=== PATIENT | female | born 1950 | race Caucasian/White ===

== ENCOUNTER 2018-04-25 11:06 | Inpatient (IN) | payer OTHER ==
--- NOTE | 2018-04-25 11:20 | EDPHY ---
H & P Stated Complaint: Recent dx stomach ca;can't swallow~1wk;wants adm&hospice Time Seen by Provider: 04/25/18 11:20 - Personal History Current Tetanus Diphtheria and Acellular Pertussis (TDAP): Yes - Medical/Surgical History Other PMH: chronic pain - Social History Smoking Status: Former smoker Constitutional: Initial Vital Signs Temperature (C) 37 C 04/25/18 11:10 Heart Rate 100 04/25/18 11:10 Respiratory Rate 18 04/25/18 11:10 Blood Pressure 145/98 H 04/25/18 11:10 O2 Sat (%) 97 04/25/18 11:10 O2 Delivery Mode Room Air Allergies/Adverse Reactions: ciprofloxacin [From Cipro] Allergy (Mild, Verified 04/25/18 11:16) GI upset metronidazole [From Flagyl] Allergy (Mild, Verified 04/25/18 11:16) GI upset Metronidazole HCl [From Flagyl] Allergy (Mild, Verified 04/25/18 11:16) GI upset Home Medications: Medication Instructions Recorded fentaNYL [Duragesic] 1 each TD 04/25/18 Medical Decision Making ED Course/Re-evaluation: CHIEF COMPLAINT: Progressive esophageal cancer, wants hospice HISTORY OF PRESENT ILLNESS: The patient is a 67 y/o female with rapidly progressing obstructive esophageal cancer diagnosed 4 days ago who is requesting comfort measures and help entering hospice as she is unable to eat or drink. She developed symptoms in December and has been on treatment for GERD since then. Symptoms worsened and last week she was scoped by JALEN Richardson, who was unable to pass the scope due to a nearly completely obstructing esophageal mass. She describes near constant burning pain, nausea, and a "heavy weight" in her chest. She is unable to lie down due to pain and even trying to swallow a drop of water causes dry heaving and severe pain. She is requesting pain management and help planning hospice care. She is scheduled to see an oncologist next week, but is in intolerable pain currently. A Fentanyl patch offered minimal relief. REVIEW OF SYSTEMS: A comprehensive 10 system review of systems is otherwise negative aside from elements mentioned in the history of present illness and medical decision making. PHYSICAL EXAM: HR, BP, O2 Sat, RR. Temp noted General Appearance: Alert, well hydrated, appropriate, and non-toxic appearing. Thin. Head: Atraumatic without scalp tenderness or obvious injury Eyes: Pupils equal, round, reactive to light and accommodation, EOMI, no trauma , no injection. Ears: Clear bilaterally, no perforation, normal landmarks Nose: Atraumatic, no rhinorrhea, clear. Throat: There is no erythema or exudates, no lesions, normal tonsils, mucus membranes moist. Neck: Supple, nontender, no lymphadenopathy. Respiratory: No retractions, no distress, no wheezes, and no accessory muscle use. Lungs are clear to auscultation bilaterally. Cardiovascular: Regular rate and rhythm, no murmurs, rubs, or gallops. Good capillary refill all extremities. Gastrointestinal: Abdomen is soft, nontender, non-distended, no masses, no rebound, no guarding, no peritoneal signs. Musculoskeletal: Normal active ROM of all extremities, atraumatic. Neurological: Alert, appropriate, and interactive. The patient has non-focal cranial nerves, motor, sensory, and cerebellar exam. Skin: No rashes, good turgor, no nodules on palpation. Past medical history: Esophageal cancer, scoliosis Past surgical history: noncontributory Family history: Noncontributory Social history: Son at bedside, lives in [place], [facility]. GI: Dr. Fay DIFFERENTIAL DIAGNOSIS: The differential diagnosis for the patient's symptoms included but was not limited to progressive esophageal cancer, obstructing mass , dysphagia, odynophagia. MEDICAL DECISION MAKING: This is a 67 y/o female who presents with a recently-diagnosed and rapidly growing esophageal mass that has now caused inability to swallow and severe pain. She is seeking comfort care and hospice. Plan for IV, labs, symptom management, case management involvement, oncology and GI consults, and admission. 1mg IV Dilaudid, 30mg IV Toradol, 4mg IV Zofran, 40mg IV Protonix, 1L IV NS ordered. Spoke with hospitalist service. Dr. Weeks accepts admission. 1155: Consulted with Dr. Fay, GI. He will consult as needed, though reports if patient opts for PEG tube it will need to be surgical or IR. 1222: Consulted with Dr. Pak, oncology. They will consult and would like a chest and abdomen/pelvis CT. - Data Points Laboratory Results: Laboratory Results 04/25/18 11:55 04/25/18 04/25/18 04/25/18 11:55 11:55 11:55 WBC 6.17 10^3/uL 10^3/uL (3.80-9.50) RBC 4.73 10^6/uL 10^6/uL (4.18-5.33) Hgb 15.5 g/dL g/dL (12.6-16.3) Hct 43.9 % % (38.0-47.0) MCV 92.8 fL fL (81.5-99.8) MCH 32.8 pg pg (27.9-34.1) MCHC 35.3 g/dL g/dL (32.4-36.7) RDW 13.2 % % (11.5-15.2) Plt Count 443 10^3/uL H 10^3/uL (150-400) MPV 9.7 fL fL (8.7-11.7) Neut % (Auto) 73.0 % % (39.3-74.2) Lymph % (Auto) 16.7 % % (15.0-45.0) Sequoyah % (Auto) 8.1 % % (4.5-13.0) Eos % (Auto) 1.8 % % (0.6-7.6) Baso % (Auto) 0.2 % L % (0.3-1.7) Nucleat RBC Rel Count 0.0 % % (0.0-0.2) Absolute Neuts (auto) 4.51 10^3/uL 10^3/uL (1.70-6.50) Absolute Lymphs (auto) 1.03 10^3/uL 10^3/uL (1.00-3.00) Absolute Monos (auto) 0.50 10^3/uL 10^3/uL (0.30-0.80) Absolute Eos (auto) 0.11 10^3/uL 10^3/uL (0.03-0.40) Absolute Basos (auto) 0.01 10^3/uL L 10^3/uL (0.02-0.10) Absolute Nucleated RBC 0.00 10^3/uL 10^3/uL (0-0.01) Immature Gran % 0.2 % % (0.0-1.1) Immature Gran # 0.01 10^3/uL 10^3/uL (0.00-0.10) PT 13.5 SEC SEC (12.0-15.0) INR 1.01 (0.83-1.16) APTT Pending Sodium Pending Potassium Pending Chloride Pending Carbon Dioxide Pending Anion Gap Pending BUN Pending Creatinine Pending Estimated GFR Pending Glucose Pending Calcium Pending Total Bilirubin Pending Conjugated Bilirubin Pending Unconjugated Bilirubin Pending AST Pending ALT Pending Alkaline Phosphatase Pending Total Protein Pending Albumin Pending Lipase Pending Medications Given: Discontinued Medications Hydromorphone HCl (Dilaudid) 1 mg IVP EDNOW ONE Stop: 04/25/18 11:47 Last Admin: 04/25/18 12:06 Dose: 1 mg Sodium Chloride (Ns) 1,000 mls @ 0 mls/hr IV EDNOW ONE; Wide Open PRN Reason: Protocol Stop: 04/25/18 11:47 Last Admin: 04/25/18 12:01 Dose: 1,000 mls Ketorolac Tromethamine (Toradol) 30 mg IVP EDNOW ONE Stop: 04/25/18 11:47 Last Admin: 04/25/18 12:05 Dose: 30 mg Ondansetron HCl (Zofran) 4 mg IVP EDNOW ONE Stop: 04/25/18 11:47 Last Admin: 04/25/18 12:02 Dose: 4 mg Departure - Departure Disposition: [facility] Inpatient Acute Clinical Impression: Esophageal mass, Intractable pain Dysphagia Qualifiers: Dysphagia type: unspecified Qualified Code(s): R13.10 - Dysphagia, unspecified Condition: Serious Report Scribed for: Donaldo Garcia Report Scribed by: Liz Morales Date of Report: 04/25/18 Time of Report: 11:44
[2018-04-25] MEDS ORDERED: NS 1,000 ML IV ONE (11:46)
[2018-04-25] MEDS ORDERED: HYDROmorphONE/DILAUDID 2 MG/ML INJ IVP ONE (11:46)
[2018-04-25] MEDS ORDERED: ONDANSETRON 4 MG/2 ML VIAL IVP ONE (11:46)
[2018-04-25] MEDS ORDERED: KETOROLAC 30 MG/1 ML SDV IVP ONE (11:46)
[2018-04-25 12:06] LABS: PLATELET COUNT 443 10^3/uL (150-400)
[2018-04-25 12:16] LABS: INR 1.01 (0.83-1.16); PROTIME(PATIENT) 13.5 SEC (12.0-15.0)
[2018-04-25] MEDS ORDERED: ZOLPIDEM TARTRATE 5 MG TAB PO PRN (12:46)
[2018-04-25] MEDS ORDERED: ACETAMINOPHEN 325 MG TAB PO PRN (12:46)
--- NOTE | 2018-04-25 12:50 | ASMTLACE ---
ROSIE Acuity / Level of Answers: Yes Care: Did the patient have an inpatient admission? Comorbidities - select Answers: Any tumor (including all that apply lymphoma or leukemia) Opioid dependence / Chronic pain Palliative care / End of life trajectory # of Emergency department Answers: 1-2 visits in the last 6 months Score: 12 Date Signed: 04/25/2018 12:49 PM Electronically Signed By:Gracie Stuart RN
[2018-04-25] MEDS ORDERED: LIDOCAINE 2% VISCOUS 15 ML UDCUP PO PRN (13:53)
--- NOTE | 2018-04-25 13:53 | PDGENHP ---
History and Physical History and Physical: CC: Nausea vomiting chest and abdominal pain with recent tumor diagnosed HISTORY: This patient who is generally healthy has been fighting trouble with substernal and epigastric burning pain nausea and inability to eat and drink for several months which has been getting much worse to the point where she can barely get a few drops of water at a time in now and she has become dehydrated. She was seen in endoscopy clinic 5 days ago with upper GI which showed a very large esophagogastric mass. Biopsies have shown a poorly differentiated adenocarcinoma. Dr. Fay was unable to advance the endoscope beyond the tumor and so there is very incomplete examination in terms of anatomy. The patient has been using proton pump inhibitors but finding them very unhelpful. She does find some licorice and slippery elm syrup somewhat helpful in reducing the burning discomfort to a degree. Antacids increase the burning sensation. The patient also has been having quite a bit of increase in a burning type pain in her back, particularly along the spine and ribs. 3 days ago she started using fentanyl patch at 12.5 mcg, and last night it was increased to 25 mcg. This is giving her some good improvement in pain so far without sedation or nausea. She did have a bowel movement this morning despite her having very minimal oral intake lately. She denies headaches, neurologic or visual symptoms, cough or shortness of breath, bleeding, bladder or urinary difficulties, arthropathy, skin lesions or rashes. She has lost a very large amount of weight but has not weighed herself. She is getting very weak. She has cut back on activities significantly. ROS: A comprehensive 10 system review revealed no other significant findings PAST MEDICAL HISTORY: Chronic back pain with scoliosis Irritable bowel syndrome DCIS FAMILY MEDICAL HISTORY: Esophageal cancer in an aunt Breast cancer in 1 family member and DCIS and another Father was a smoker and of myocardial infarction Other cancer? SOCIAL HISTORY: Works at [employer] Former smoker, never drank alcohol no hx of chemical exposures MEDICATIONS: The patients list has been reconciled by our clinical pharmacist in the EMR. I have reviewed the list and ordered appropriate medicines. PHYSICAL EXAMINATION: Vital Signs: No fever, some mild hypertension otherwise stable Ivory Polisher: Examination: General: alert, oriented, good mentation, looks mildly uncomfortable at this time but overall relaxed; obvious cachexia was minimal subcutaneous fat and very poor lean muscle mass Skin: warm, dry, good color, no rash HEENT: normal Neck: no mass or jvd Resps: relaxed Lungs: clear breath sounds Heart: regular, no murmur Abdomen: soft, nondistended, some diffuse tenderness in the epigastrium, +BS, no mass Upper Extremities: normal Lower Extremities: no edema, warm No Bleeding or bruising Neurologic: normal speech/language, 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, no focal weakness IV site: looks normal LABORATORY DATA: Platelets a bit high but CBC otherwise normal Potassium low at 3.0, CO2 up at 32 with anion gap of 15, BUN up at 28 with normal creatinine Normal liver enzymes and bilirubin normal albumin 4.4 calcium 9.7 (I suspect a lot of these numbers like her albumin and calcium will change somewhat with hydration) RADIOLOGY STUDIES: None so far ASSESSMENT: * new diagnosis of esophageal/gastric carcinoma * pain of malignancy, severe and currently uncontrolled * dehydration * severe protein calorie malnutrition * hypokalemia PLANS: * Inpatient admission * IV fluid hydration and potassium replacement * Pain management; at this time as she is tolerating 25 mcg fentanyl patch will continue that and will work with some short-acting rescue narcotic medicine. I believe that she may also benefit from some lidocaine solution orally, and given her description of the sensation of pain in her back she may well benefit from medicine for neuropathic pain but will review her CT scans * Percutaneous feeding tube placement, will review with Interventional Radiology * I have discussed possible chemotherapy options and further therapy options with Dr. Pak, further tumors studies will be required before definitive treatment but she may benefit from some initial therapy now in the way of tumor reduction and pain management * Public Information Director consultation, will begin enteral feeds as soon as we are able I have reviewed the patient's case in detail with Dr. Donaldo Garcia and Jacky Pak I have reviewed the patient's past medical records as part of this assessment, including previous ER records here
--- NOTE | 2018-04-25 13:57 | PDCONSULT ---
Comfort Station Attendant Note: Hematology/oncology consultation note Reason for consultation: Newly diagnosed esophageal cancer History of present illness: This is a very pleasant 67-year-old female who was admitted with a new diagnosis of esophageal cancer. She states that in December of 2017 she noted symptoms of dysphagia with solid foods. She states that she would feel food gets"stuck"in the lower portion of her abdomen. She thought some of this could be related to gastroesophageal reflux disease. She took Prilosec and had slight improvement in her symptoms. The symptoms unfortunately return. She saw a functional Integrative Medicine practitioner and was given licorice root which did help her symptoms. Eventually later in the summer her symptoms slowly worsened. She had significant abdominal pain alongside 20 lb weight loss. She eventually underwent endoscopy for on 04/21/2018 which demonstrated obstructive mass in the esophagus with the scope unable to be passed. Biopsy of the junctional mucosa demonstrated poorly differentiated adenocarcinoma. She was to see us in clinic in the coming weeks but unfortunately had worsening of her abdominal pain and GI symptoms. She is currently taking fentanyl patch at 12.5 mc but continued to have breakthrough pain. Past medical history: Atypical ductal hyperplasia of the left breast Chronic cervical and lower back pain Restless leg syndrome IBS Past surgical history: Left lumpectomy Hysterectomy in her 40s Bilateral cataract surgery in her 50s Bunionectomy Hammertoe repair in her 40s. Femoral hernia repair few years ago Family history: Mother age 96 history hypertension. Father age 69 myocardial infarction. Maternal aunt with esophageal cancer. Maternal grandfather with lung cancer. Paternal grandmother with lung or breast cancer. Social history: She is a former smoker quit 30 years ago smoked 1 pack per day. She has no significant alcohol intake. She currently works full-time at [employer] with [employer]. Allergies: Noted in the EMR. Medications: Noted in the EMR. Physical examination Temp Pulse Resp BP Pulse Ox 36.6 C 78 18 142/86 H 99 04/25/18 13:44 04/25/18 13:44 04/25/18 13:44 04/25/18 13:44 04/25/18 13:44 O2 (L/minute) 2 General: Thin female, conversant HEENT: Sunken eyes, extraocular movements are intact pupils equal round reactive to light, oropharynx is clear, dry mucous membranes Cardiovascular: Regular rate and rhythm no murmurs gallops rubs Pulmonary: Clear to auscultation bilaterally Abdomen: Thin, no rebound, pain in the epigastrium, bowel sounds are present Extremities: No cyanosis clubbing or edema. Psych: Appropriate affect Neuro: Moving all extremities alert oriented x4 Skin: No skin lesions Lymph: No appreciable lymphadenopathy 04/21/2018 endoscopy with biopsy demonstrating poorly differentiated adenocarcinoma. Assessment and plan: This is a very pleasant 67-year-old female who is otherwise previously healthy with a new diagnosis of esophageal adenocarcinoma. 1. Esophageal adenocarcinoma: I have recommended obtaining baseline staging with a CT of the chest abdomen and pelvis. We discussed that treatment would ultimately be dependent on finalized staging. If she has unresectable disease, I would recommend palliative chemotherapy. I will request her pathology be sent for her 2 testing alongside MSI evaluation. She has amendable for treatment and is willing to undergo [id number] placement. 2. Cancer-related pain: Agree with increasing fentanyl patch 25 mcg with IV to be given for breakthrough. 3. Weight loss: This is secondary to 1. We discussed the given her level of obstruction she unlikely we will be able to tolerate p.o. unless if she has tumor cytoreduction. She is amendable to receive a percutaneous feeding tube. Will review the CT imaging to see if that can be done with Interventional Radiology versus surgically. All questions were answered. She voiced understanding the plan.
[2018-04-25] MEDS: PANTOPRAZOLE SODIUM 40 MG VIAL IVP SCH (14:27)
[2018-04-25] MEDS: fentaNYL 25 MCG PATCH TD SCH (14:28)
--- NOTE | 2018-04-25 14:35 | GCON ---
GI INPATIENT CONSULTATION DATE OF CONSULTATION: 04/25/2018 I was kindly requested to see the patient by Dr. Donaldo Garcia in consultation for a chief complaint of pain and feeding difficulties. She is an unfortunate 67-year-old white female who I recently performed an outpatient upper endoscopy on for gastric outlet obstructive symptoms, epigastric and substernal abdominal pain, and significant weight loss. A very large gastric cancer was found, occupying the upper half of her stomach. There was some extension into the GE junction. Much of the cancer was villous in nature, but there were also infiltrative areas suggestive of linitis plastica. We were unable to get the endoscope past the body of the stomach due to circumferential obstruction. Biopsies returned with adenocarcinoma. She has had continued pain from her cancer and presented to the emergency department. She is also having difficulty with oral intake. She feels dehydrated. She has had continued weight loss. The patient is aware of her diagnosis. I have discussed her case with her PCP, Dr. Rosalba Boone. The next step was a staging CT scan and referral to an oncologist, but with the worry that this was presenting late and noncurable. PAST MEDICAL HISTORY: 1. As above. 2. Partial hysterectomy. 3. Cataract surgery. 4. Otherwise, noncontributory. MEDICATIONS: Inpatient medications include pantoprazole 40 mg IV piggyback q.6. SOCIAL HISTORY: She is . She has a son who lives in the area. Her daughter, Mignon, lives in [place]. The patient's cell phone number is . FAMILY HISTORY: Negative for similar malignancy. REVIEW OF SYSTEMS: Positive pertinent review of systems as per my HPI. Otherwise, complete review of systems is negative. PHYSICAL EXAM: CONSTITUTIONAL: Chronically ill-appearing woman, in pain. SKIN : Warm, dry. EARS, NOSE, MOUTH, AND THROAT: Oropharynx without masses, moist mucosa. CARDIOVASCULAR: Normal S2, normal PMI. RESPIRATORY: Lungs clear to auscultation and percussion anteriorly. GASTROINTESTINAL: Abdomen with some mild epigastric tenderness. Soft. NEUROLOGIC: Grossly nonfocal, cranial nerves grossly intact. PSYCHIATRIC: Orientation, insight appropriate. MUSCULOSKELETAL: Strength grossly normal throughout, normal station. LABORATORIES: Include hypokalemia. ASSESSMENT: 1. Obstructing gastric cancer, with extension into the gastroesophageal junction (causing some esophageal obstruction as well). Biopsies returned as an adenocarcinoma. Much of the gastric cancer has an appearance of linitis plastica. Overall, with the above tumor burden, and my suspicion that she is presenting late in her course with her significant weight loss, suspect nonresectable for cure. 2. Feeding difficulties. Her gastric cancer is nearly obstructive in the midbody of the stomach, as well as some infiltration into the gastroesophageal junction. Unable to get the endoscope past the gastric body. Therefore, she is not a candidate for endoscopic placement of a gastrostomy tube. If not a surgical candidate, as I suspect, but she wishes to receive nourishment, fluids , etc., she would require a jejunostomy tube. This would need to be placed either surgically, or (if possible) via Interventional Radiology. PLAN: 1. She is being admitted for pain control, IV fluids, and possible help with becoming hospice and comfort care. 2. While an inpatient, to be more definitive that this is indeed nonresectable for cure, would recommend a chest and abdominal CT scan for staging. 3. While an inpatient, would also recommend oncology consultation. If she indeed becomes hospice and comfort care, they can help with pain medicine control, etc. 4. Will change her Protonix to just daily, while here in the hospital. This is not an acid peptic condition, so do not suspect PPIs are necessary or will help decrease her pain. 5. Management of her feeding difficulty, as above. Further management as per the hospitalist service, oncologist. We will follow informally only. Please call if we can be of further help in the future. Copy requested to: Dr. Rosalba Boone /[id number]/MODL MTDD
--- NOTE | 2018-04-25 14:51 | ASMTCMCOM ---
CM Note CM Note Notes: 04/25/2018 Case Management Note Reviewed chart. Pt admitted for pain control and staging of newly diagnosed gastric cancer. Pt may require surgery for jejunostomy tube per Dr. Fay note today. Awaiting OT and SLT evals. Case Management d/c poc: to be determined Case Management to follow. Date Signed: 04/25/2018 02:50 PM Electronically Signed By:Sridevi Gamboa RN
--- NOTE | 2018-04-25 15:05 | PDMN ---
Medical Necessity Medical necessity: [facility] : Oncology new Dg esophageal / gastric Ca,- pain, dehydration, severe protein calorie malnutrition, hypokalemia, - anticipate > 2 MN ongoing med nec. for further eval, monitoring and tx. -consults pend
[2018-04-25] MEDS ORDERED: IOPAMIDOL (ISOVUE-300) 100 ML BTL ONE (16:35)
[2018-04-25] MEDS ORDERED: PANTOPRAZOLE SODIUM 40 MG VIAL IVP SCH (17:47)
[2018-04-25] MEDS: NS W/ 20 KCl/L 1,000 ML IV SCH ×2 (19:36→21:18)
[2018-04-25] MEDS: ONDANSETRON 4 MG/2 ML VIAL IVP PRN (19:43)
[2018-04-25] MEDS: PROMETHAZINE HCL 25 MG/ML INJ IVP PRN (21:17)
[2018-04-25] MEDS: MELATONIN 3 MG TAB PO SCH (21:20)
[2018-04-25] MEDS: morphINE 10 MG/0.5 ML UDSYR PO PRN (21:20)
[2018-04-26] MEDS: NS W/ 20 KCl/L 1,000 ML IV SCH ×3 (04:16→17:51)
[2018-04-26] MEDS: PROMETHAZINE HCL 25 MG/ML INJ IVP PRN ×2 (04:22→18:33)
[2018-04-26] MEDS: morphINE 10 MG/0.5 ML UDSYR PO PRN ×4 (04:22→21:26)
[2018-04-26 05:11] LABS: PLATELET COUNT 327 10^3/uL (150-400)
[2018-04-26] MEDS ORDERED: D50W 25 GM/50 ML VIAL IVP PRN (05:48)
[2018-04-26] MEDS: ONDANSETRON 4 MG/2 ML VIAL IVP PRN ×3 (08:03→17:51)
[2018-04-26] MEDS: PANTOPRAZOLE SODIUM 40 MG VIAL IVP SCH (08:03)
--- NOTE | 2018-04-26 14:04 | ASMTCMCOM ---
CM Note CM Note Notes: Patient plan of care reviewed in rounds. 67 year old female with relatively newly diagnosed esophageal cancer here with pain and dysphagia. She reports her symptoms are much improved. Cancer is still in process of staging. Her son is in her room. Plan of care still being determined at this time. CM to follow for needs. Plan: TBD Date Signed: 04/26/2018 02:04 PM Electronically Signed By:Ketty Irizarry RN
--- NOTE | 2018-04-26 17:01 | SOAPPROG ---
SKIP Progress Note Assessment/Plan: Assessment: This is a very pleasant 69-year-old female with a newly diagnosed esophageal cancer who was admitted for failure to thrive in pain control. 1. Gastroesophageal cancer: I have reviewed her CT imaging that demonstrates thickening in the distal esophagus extending down to the stomach. This was previously biopsy that demonstrated adenocarcinoma. I reviewed her CT scans demonstrate no evidence of distant metastasis. I have recommended that she obtain a PET/CT as an outpatient. She needs to have access for nutrition and of consult General surgery for evaluation of a G-J Tube. Given the lack of distant metastasis I have also discussed with Dr. Ibarra about a peritoneal wash and diagnostic laparoscopy while placement of G-J. 2. Weight loss: This is secondary to 1. We are addressing the issue by placing a G-J tube. 3. Cancer related pain: She is on fentanyl patch alongside short-acting opiates. Her pain is currently under good control. 04/26/18 16:58 Subjective: She reports feeling well today. Her pain is under control. She is still in a able to eat given her underlying obstruction. She is ambulating without any assistance. No other issues overnight. Objective: Vital Signs Temp Pulse Resp BP Pulse Ox 36.7 C 73 16 137/87 H 99 04/26/18 16:19 04/26/18 16:19 04/26/18 16:19 04/26/18 16:19 04/26/18 16:19 Laboratory Results 04/26/18 04:12 04/26/18 04:12 04/25/18 04/26/18 04/27/18 05:59 05:59 05:59 Intake Total 3145 Output Total 300 Balance 2845 PT 13.5 SEC (12.0-15.0) 04/25/18 11:55 INR 1.01 (0.83-1.16) 04/25/18 11:55 General: Pleasant conversant in no acute distress HEENT: Oropharynx is clear extraocular movements are intact Cardiovascular: Regular rate and rhythm Pulmonary: Clear to auscultation bilaterally Abdomen: Thin slight tenderness in the epigastrium soft nontender otherwise bowel sounds are present no rebound Extremities: No cyanosis clubbing or edema Neuro: Moving all extremities Skin: No skin lesions ICD10 Worksheet Patient Problems: Problems Problem Status Onset Dysphagia Acute Esophageal mass Acute Intractable pain Acute
--- NOTE | 2018-04-26 19:13 | HOSPPROG ---
Hospitalist Progress Note Assessment/Plan: DIAGNOSES: * new diagnosis of esophageal/gastric carcinoma * pain of malignancy, severe and currently uncontrolled * Improved with changes in her pain management so far including increase the fentanyl patch * dehydration due to inability to take in fluids from tumor * Approaching usually me a at this time but still with poor intake * severe protein calorie malnutrition due to inability to eat from tumor * Still not able to take in food well * hypokalemia Seen by me today on hospitals rounds and multidisciplinary rounds Reviewed by me today with Dr. Jacky Pak PLANS: * Continue current pain management, titrate based on her progress over the next couple of days here * Continue IV hydration for now * Plan is to place a percutaneous feeding tube surgically tomorrow with Dr. 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 There is no evidence of metastatic disease although there are some limits given her severe scoliosis another features. She does have fairly severe thoracic scoliosis and degenerative spine disease. Objective: Vital Signs Temp Pulse Resp BP Pulse Ox 36.7 C 73 16 137/87 H 99 04/26/18 16:19 04/26/18 16:19 04/26/18 16:19 04/26/18 16:19 04/26/18 16:19 Laboratory Results 04/26/18 04:12 04/26/18 04:12 04/25/18 04/26/18 04/27/18 06:59 06:59 06:59 Intake Total 3145 0 Output Total 300 600 Balance 2845 -600 PT 13.5 SEC (12.0-15.0) 04/25/18 11:55 INR 1.01 (0.83-1.16) 04/25/18 11:55 - Time Spent With Patient Time Spent with Patient: greater than 35 minutes Time Spent with Patient: Greater than 35 minutes spent on this patients care, greater than 50% of time spent counseling, educating, and coordinating care regarding the above mentioned plan. ICD10 Worksheet Patient Problems: Problems Problem Status Onset Dysphagia Acute Esophageal mass Acute Intractable pain Acute
[2018-04-26] MEDS: MELATONIN 3 MG TAB PO SCH (21:26)
--- NOTE | 2018-04-26 21:58 | GCON ---
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 HISTORY OF PRESENT ILLNESS: The patient is a 67-year-old female who has had 20 pound weight loss sin december, dysphagia to the point where she cannot even tolerate much water. She came to the hospital where a CT scan showed thickening of the GE junction and body of the stomach. An endoscopy has been done by Dr. Fay. Although I cannot read the body of his report, I understand it shows involvement o f the whole upper half of the stomach with potentially linitis plastica features. I have reviewed ab dominal and chest CTs again showing thickening of the upper stomach and the lack of metastatic diseas e or obvious mayte involvement. Pathology again apparently shows adenocarcinoma. The path report wa s verbal and there is no typed report yet in the chart. PHYSICAL EXAM: GENERAL: A 70 pound female, cachectic. LYMPHATIC: No supraclavicular nor axillary nodes. ABDOMEN: Soft, benign. There is a fullness in the upper abdomen which I suspect was a thick ened stomach wall given her slender body habitus. ASSESSMENT AND PLAN: I discussed the case with Dr. Pak who has requested for consideration of a staging laparoscopy and feeding tube placement. This can certainly be done in the next day or 2, and a jejunal tube can be placed. I do not think the patient is a good candidate for any type of gastro stomy given the thickened stomach wall. A chemotherapy port can be placed at the same time. /[id number]/MODL
[2018-04-27] MEDS: NS W/ 20 KCl/L 1,000 ML IV SCH ×2 (03:14→09:09)
[2018-04-27] MEDS: PROMETHAZINE HCL 25 MG/ML INJ IVP PRN ×3 (03:14→23:01)
[2018-04-27] MEDS: PANTOPRAZOLE SODIUM 40 MG VIAL IVP SCH (08:02)
[2018-04-27] MEDS: morphINE 10 MG/0.5 ML UDSYR PO PRN (09:08)
[2018-04-27] MEDS: HYDROmorphONE/DILAUDID 1 MG/ML INJ IVP PRN ×2 (11:13→23:01)
[2018-04-27] MEDS ORDERED: BUPIVACAINE 0.5% 30 ML SDV ONE (13:37)
[2018-04-27] MEDS ORDERED: POLYMYXIN B SULFATE 500,000 UNIT/10 ML SYR IRR ONE (13:38)
--- NOTE | 2018-04-27 14:14 | ASMTCMCOM ---
CM Note CM Note Notes: Patient plan of care reviewed in rounds. For J tube and port placement today. Will likely need HHC RN to assist patient. Unsure of what feedings may look like. Will place referrals in allscripts for HHC and home infusion services. Will apply to [facility] as well. CM to follow for needs. Plan: Home with HHC RN and infusion service. Date Signed: 04/27/2018 02:08 PM Electronically Signed By:Ketty Irizarry RN
[2018-04-27] MEDS ORDERED: PROTOCOL MAGNESIUM 1 DOSE IV PRN (14:43)
[2018-04-27] MEDS ORDERED: PROTOCOL POTASSIUM 1 DOSE MISC PRN (14:43)
--- NOTE | 2018-04-27 14:47 | HOSPPROG ---
Hospitalist Progress Note Assessment/Plan: DIAGNOSES: * new diagnosis of esophageal/gastric carcinoma * pain of malignancy * dehydration due to inability to take in fluids from tumor * severe protein calorie malnutrition due to inability to eat from tumor * Still not able to take in food well * hypokalemia * Nausea: schedule antiemetics Seen by me today on hospitals rounds and multidisciplinary rounds Reviewed by me today with Dr. Jacky Pak PLANS: * Staging Lap, Jejunal feeding tube placement, port placement today * Continue current pain management, titrate based on her progress over the next couple of days here * cont but decrease rate of IVF * replace K, check Mg. * tube feeds once able to start. Dietary is following * chemotherapy either during this hospital stay or shortly thereafter in clinic Subjective: awaiting surgery. Has nausea. no abd pain. IVF running Objective: Vital Signs Temp Pulse Resp BP Pulse Ox 36.8 C 76 14 124/79 H 96 04/27/18 14:34 04/27/18 14:34 04/27/18 14:34 04/27/18 14:34 04/27/18 14:34 Laboratory Results 04/26/18 04:12 04/26/18 04:12 04/26/18 04/27/18 04/28/18 05:59 05:59 05:59 Intake Total 3145 1257 Output Total 300 1150 500 Balance 2845 107 -500 PT 13.5 SEC (12.0-15.0) 04/25/18 11:55 INR 1.01 (0.83-1.16) 04/25/18 11:55 - Physical Exam Constitutional: chronically ill appearing Eyes: PERRL Ears, Nose, Mouth, Throat: moist mucous membranes, hearing normal Cardiovascular: regular rate and rhythym, No edema Respiratory: no respiratory distress, no rales or rhonchi, clear to auscultation Gastrointestinal: normoactive bowel sounds, soft, non-tender abdomen Skin: warm Musculoskeletal: generalized weakness Neurologic: AAOx3 Psychiatric: interacting appropriately, not anxious, not encephalopathic Lymph, Heme, Immunologic: No petechiae ICD10 Worksheet Patient Problems: Problems Problem Status Onset Dysphagia Acute Esophageal mass Acute Intractable pain Acute
[2018-04-27] MEDS ORDERED: LR 1,000 ML IV ONE (14:52)
--- NOTE | 2018-04-27 15:04 | SOAPPROG ---
SKIP Progress Note Assessment/Plan: Assessment: This is a very pleasant 69-year-old female with a newly diagnosed esophageal cancer who was admitted for failure to thrive in pain control. 1. Gastroesophageal cancer: I have reviewed her CT imaging that demonstrates thickening in the distal esophagus extending down to the stomach. This was previously biopsy that demonstrated adenocarcinoma. I reviewed her CT scans demonstrate no evidence of distant metastasis. I have recommended that she obtain a PET/CT as an outpatient. She is to undergo G-J Tube placement today for nutrition. I have also discussed peritoneal wash for evaluation of metastatic disease within the abdomen. We also discussed Lcxknj-L-Cxla placement and she finds is agreeable as she likely will need chemotherapy either in the metastatic setting or preoperatively. She voices understanding of this and is agreeable for Nccjko-U-Lwoz placement. 2. Weight loss: This is secondary to 1. She will follow up with nutrition following G-J tube place. 3. Cancer related pain: She is on fentanyl patch alongside short-acting opiates. Her pain is currently under good control. 04/27/18 15:03 Subjective: No acute events overnight. She is ready for surgery today. Objective: Vital Signs Temp Pulse Resp BP Pulse Ox 36.8 C 76 14 124/79 H 96 04/27/18 14:34 04/27/18 14:34 04/27/18 14:34 04/27/18 14:34 04/27/18 14:34 Laboratory Results 04/26/18 04:12 04/26/18 04:12 04/26/18 04/27/18 04/28/18 05:59 05:59 05:59 Intake Total 3145 1257 Output Total 300 1150 500 Balance 2845 107 -500 PT 13.5 SEC (12.0-15.0) 04/25/18 11:55 INR 1.01 (0.83-1.16) 04/25/18 11:55 General: Thin female appears in no acute distress HEENT: Extraocular movements are intact eye pupil equal and reactive Cardiovascular: Regular rhythm Pulmonary: Clear to auscultation bilaterally Abdomen: Mild tenderness in the epigastrium bowel sounds are present no rebound or guarding Extremities: No cyanosis clubbing or edema ICD10 Worksheet Patient Problems: Problems Problem Status Onset Dysphagia Acute Esophageal mass Acute Intractable pain Acute
[2018-04-27] MEDS ORDERED: MIDAZOLAM 2 MG/2 ML VIAL IVP ONE (15:36)
--- NOTE | 2018-04-27 15:39 | PDANEPAE ---
ANE History of Present Illness 67 year old with gastric ca ANE Past Medical History - Pulmonary History Hx Oxygen in Use at Home: No Hx Sleep Apnea: No Sleep Apnea Screening Result - Last Documented: Negative - Chronic Pain History Chronic Pain: Yes ANE Review of Systems Review of systems is: negative Review of Systems: ANE Patient History - Allergies Allergies/Adverse Reactions: ciprofloxacin [From Cipro] Allergy (Mild, Verified 04/25/18 11:16) GI upset metronidazole [From Flagyl] Allergy (Mild, Verified 04/25/18 11:16) GI upset Metronidazole HCl [From Flagyl] Allergy (Mild, Verified 04/25/18 11:16) GI upset - Home Medications Home medications: home medication list seen and reviewed Home Medications: Herbals/Supplements -Info Only 1 ea PO DAILY 04/25/18 [Last Taken Unknown] Ondansetron Odt [Zofran Odt 4 mg (*)] 4 mg PO Q8HRS PRN 04/25/18 [Last Taken Unknown] fentaNYL [Duragesic 12 MCG Patch (*)] 12 mcg TD Q72H 04/25/18 [Last Taken 21:00] traMADol [Ultram 50 mg (*)] 50 mg PO Q4HRS PRN 04/25/18 [Last Taken 04/22/18] - NPO status NPO Since - Liquids (Date): 04/27/18 NPO Since - Liquids (Time): 00:00 NPO Since - Solids (Date): 04/27/18 NPO Since - Solids (Time): 00:00 - Anes Hx Anes Hx: no prior problems - Smoking Hx Smoking Status: Former smoker ANE Labs/Vital Signs - Labs Result Diagrams: 04/26/18 04:12 04/26/18 04:12 - Vital Signs Blood Pressure: 149/85 Heart Rate: 72 Respiratory Rate: 12 O2 Sat (%): 96 Height: 146.05 cm Weight: 36.287 kg ANE Physical Exam - Airway Mallampati Score: Class 1 Mouth exam: normal dental/mouth exam - Pulmonary Pulmonary: no respiratory distress, clear to auscultation - Cardiovascular Cardiovascular: regular rate and rhythym - ASA Status ASA Status: III ANE Anesthesia Plan Anesthesia Plan: general endotracheal anesthesia
[2018-04-27] MEDS ORDERED: CEFAZOLIN 1 GM/DEXTROSE/50 ML BAG IV ONE (16:02)
[2018-04-27] MEDS ORDERED: fentaNYL 100 MCG/2 ML INJ ONE ×3 (16:26→18:43)
[2018-04-27] MEDS ORDERED: PROPOFOL 200 MG/20 ML VIAL ONE (16:26)
[2018-04-27] MEDS ORDERED: BUPIVACAINE/EPI 0.5% 30 ML SDV ONE (16:45)
[2018-04-27] MEDS ORDERED: SUGAMMADEX SODIUM 200 MG/2 ML VIAL IVP ONE (17:54)
[2018-04-27] MEDS ORDERED: ONDANSETRON 4 MG/2 ML VIAL IVP PRN (18:21)
[2018-04-27] MEDS ORDERED: fentaNYL 100 MCG/2 ML INJ IVP PRN (18:21)
[2018-04-27] MEDS ORDERED: NALOXONE HCL 0.4 MG/ML INJ IVP PRN (18:21)
[2018-04-27] MEDS ORDERED: PROMETHAZINE HCL 25 MG/ML INJ IVP PRN (18:21)
--- NOTE | 2018-04-27 18:22 | POSTANESTH ---
Post Anesthetic Evaluation Cardiovascular Status: Normal, Stable Respiratory Status: Normal, Stable Level of Consciousness/Mental Status: Can Participate in Eval Pain Control: Adequate, Prn Tx Ordered Nausea/Vomiting Control: Adequate, Prn Tx Ordered Complications Possibly Related to Anesthesia: None Noted
[2018-04-27] MEDS ORDERED: ONDANSETRON 4 MG/2 ML VIAL ONE (18:25)
[2018-04-27] MEDS: ONDANSETRON 4 MG/2 ML VIAL IVP PRN (18:28)
[2018-04-27] MEDS ORDERED: MEPERIDINE 25 MG/0.5 ML AMP ONE (18:29)
--- NOTE | 2018-04-27 18:32 | GOP ---
DATE OF ADMISSION: 04/25/2018 PREOP DIAGNOSIS: Gastric cancer. POSTOP DIAGNOSIS: Gastric cancer. OPERATION: Left subclavian port placement, laparoscopy with diagnostic washings, catheter jejunostom y placement. INDICATIONS: A 67-year-old with newly diagnosed advanced gastric cancer. PROCEDURE: General anesthetic. The patient positioned supine. The chest scrubbed with ChloraPrep, draped in usual sterile fashion. An 18-gauge thin wall needle was used to locate the left subclavian vein. The guidewire inserted and eventually a port placed in the prepectoral plane, sutured in plac e. The catheter brought up to the subclavian puncture site, cut to an appropriate length, fed throug h a split sheath dilator into the extra pericardial superior vena cava. It was again flushed with he parinized saline. Port pocket was closed and Dermabond used on the skin. A fluoroscopy showed optim al placement of the catheter. The abdomen was scrubbed with ChloraPrep, draped in usual sterile fashion. Infraumbilical incision m dana. Veress needle used to achieve pneumoperitoneum and a 5 mm port placed. Camera was introduced. An additional port was placed in the left upper quadrant where the jejunostomy system was going to b e used. The viscera were examined. A small spot in the perineum which was suspicious for metastatic disease was biopsied, and there was ascites in the abdomen, so this was aspirated out and submitted as a cytology specimen. Palpation of the stomach with endoscopic instrument showed it to be firm thr oughout its length, particularly on the greater curve consistent with a linitis plastica presentation of gastric cancer. No bulky metastatic disease or studding were seen anywhere. The laparoscope was removed and a midline incision made above the umbilicus 2 inches in length. A je junostomy tube was brought in through the port site. An enterotomy made in the jejunum and a pursest ring suture placed. The catheter was introduced into the jejunum, the pursestring tied. The Glades tunnel was made approximately 2 inches in length and then the bowel sutured to the backside of the ab dominal wall to prevent both rotation and dislodgement of this jejunal loop. The cuff of the cathete r was positioned just under the skin, and then the skin incision tightened around the catheter with a silk suture. Tegaderm dressing was placed over this. It flushed easily. The patient tolerated the procedure well. /[id number]/MODL
[2018-04-27] MEDS ORDERED: MEPERIDINE 25 MG/0.5 ML AMP IVP PRN (18:49)
[2018-04-27] MEDS ORDERED: HYDROmorphONE/DILAUDID 2 MG/ML INJ ONE (18:59)
[2018-04-27] MEDS: HYDROmorphONE/DILAUDID 2 MG/ML INJ IVP PRN ×2 (19:03→19:15)
[2018-04-27] MEDS: ONDANSETRON 4 MG/2 ML VIAL IVP SCH ×2 (19:53→21:54)
[2018-04-27] MEDS ORDERED: POTASSIUM CL 10 MEQ TAB PO ONE (21:46)
[2018-04-27] MEDS: MELATONIN 3 MG TAB PO SCH (21:54)
[2018-04-28] MEDS: ONDANSETRON 4 MG/2 ML VIAL IVP PRN (03:27)
[2018-04-28 04:43] LABS: PLATELET COUNT 271 10^3/uL (150-400)
[2018-04-28] MEDS: NS W/ 20 KCl/L 1,000 ML IV SCH (05:40)
[2018-04-28] MEDS: ONDANSETRON 4 MG/2 ML VIAL IVP SCH (05:40)
[2018-04-28] MEDS: HYDROmorphONE/DILAUDID 1 MG/ML INJ IVP PRN ×5 (05:52→23:54)
[2018-04-28] MEDS ORDERED: MAGNESIUM SULF 2 GM/WATER 50 ML IV ONE (07:43)
[2018-04-28] MEDS: PANTOPRAZOLE SODIUM 40 MG VIAL IVP SCH (08:26)
[2018-04-28] MEDS: POTASSIUM Cl (KCl) 100 ML IV SCH ×3 (10:47→13:46)
[2018-04-28] MEDS: PROMETHAZINE HCL 25 MG/ML INJ IVP PRN ×2 (11:40→18:41)
--- NOTE | 2018-04-28 12:51 | SOAPPROG ---
SOAP Progress Note Assessment/Plan: Assessment: Plan: Subjective: minimal pain from jejeunostomy placemnt and port. may start slow tf per j tube. Objective: Vital Signs Temp Pulse Resp BP Pulse Ox 37.0 C 93 16 130/85 H 91 L 04/28/18 12:00 04/28/18 12:00 04/28/18 12:00 04/28/18 12:00 04/28/18 12:00 Laboratory Results 04/28/18 04:02 04/28/18 04:02 04/27/18 04/28/18 04/29/18 05:59 05:59 05:59 Intake Total 1257 1400 50 Output Total 1150 1970 Balance 107 -570 50 PT 13.5 SEC (12.0-15.0) 04/25/18 11:55 INR 1.01 (0.83-1.16) 04/25/18 11:55 ICD10 Worksheet Patient Problems: Problems Problem Status Onset Dysphagia Acute Esophageal mass Acute Intractable pain Acute
[2018-04-28] MEDS ORDERED: oxyCODONE IR 5 MG TAB TUBE PRN (13:05)
--- NOTE | 2018-04-28 13:09 | HOSPPROG ---
Hospitalist Progress Note Assessment/Plan: DIAGNOSES: * new diagnosis of esophageal/gastric carcinoma * pain of malignancy * dehydration due to inability to take in fluids from tumor * severe protein calorie malnutrition due to inability to eat from tumor * Still not able to take in food well * hypokalemia * Nausea: schedule antiemetics *s/p Left subclavian port *s/p placement of Jejunostomy feeding tube Seen by me today on hospitals rounds and multidisciplinary rounds Reviewed by me today with Dr. Jacky Pak PLANS: -f/u results of staging lap -chemotherapy start likely as an op per Oncology. Will need op PET/CT -start tube feeds, start slow, can stop IVF once tolerating good amount of TF's -start pain meds per feeding tube to wean off IV Dilaudid. Cont Fentanyl patch -replace electrolytes as needed -anticipate discharge tomorrow Subjective: Nausea has improved. Pain is well controlled although she did need IV Dilaudid earlier this morning. no cp or sob Objective: Vital Signs Temp Pulse Resp BP Pulse Ox 37.0 C 93 16 130/85 H 91 L 04/28/18 12:00 04/28/18 12:00 04/28/18 12:00 04/28/18 12:00 04/28/18 12:00 Laboratory Results 04/28/18 04:02 04/28/18 04:02 04/27/18 04/28/18 04/29/18 05:59 05:59 05:59 Intake Total 1257 1400 50 Output Total 1150 1970 Balance 107 -570 50 PT 13.5 SEC (12.0-15.0) 04/25/18 11:55 INR 1.01 (0.83-1.16) 04/25/18 11:55 - Physical Exam Constitutional: no apparent distress Eyes: PERRL Ears, Nose, Mouth, Throat: moist mucous membranes, hearing normal Cardiovascular: regular rate and rhythym, no murmur, rub, or gallop Respiratory: no respiratory distress, no rales or rhonchi, clear to auscultation Gastrointestinal: normoactive bowel sounds, soft, non-tender abdomen Skin: warm Neurologic: AAOx3 Psychiatric: interacting appropriately, not anxious, not encephalopathic Lymph, Heme, Immunologic: No petechiae ICD10 Worksheet Patient Problems: Problems Problem Status Onset Dysphagia Acute Esophageal mass Acute Intractable pain Acute
[2018-04-28] MEDS: fentaNYL 25 MCG PATCH TD SCH (13:46)
--- NOTE | 2018-04-28 13:59 | SOAPPROG ---
SKIP Progress Note Assessment/Plan: Assessment: This is a very pleasant 69-year-old female with a newly diagnosed esophageal cancer who was admitted for failure to thrive in pain control. 1. Gastroesophageal cancer: She underwent diagnostic laparoscopy was known to have ascites. Fluid was sent for cytology. Surgery demonstrated a diffusely thickened stomach. A feeding tube was placed. I have recommended assessing cytology and possibly PET/CT to rule out distant metastatic disease. I have requested HER-2 testing and MSI testing. 2. Weight loss: Enteric feeding will be started today. She will need to be monitored for re-feeding. I've placed orders for Mg and Phos to be checked tomorrow. 3. Cancer related pain: She is on fentanyl patch alongside short-acting opiates. Her pain is currently under good control. 04/28/18 13:55 Subjective: Doing well this morning. No complaints. Pain is under good control. Objective: Vital Signs Temp Pulse Resp BP Pulse Ox 37.0 C 93 16 130/85 H 91 L 04/28/18 12:00 04/28/18 12:00 04/28/18 12:00 04/28/18 12:00 04/28/18 12:00 Laboratory Results 04/28/18 04:02 04/28/18 04:02 04/27/18 04/28/18 04/29/18 05:59 05:59 05:59 Intake Total 1257 1400 50 Output Total 1150 1970 Balance 107 -570 50 PT 13.5 SEC (12.0-15.0) 04/25/18 11:55 INR 1.01 (0.83-1.16) 04/25/18 11:55 General: Thin-appearing female appears in no acute distress HEENT: Oropharynx clear extra movements are intact Pulmonary: Clear to auscultation bilaterally Cardiovascular: Regular rate and rhythm Abdomen: Abdominal incision noted. Percutaneous gastric tube in place. Extremities: Left-sided Kytzyo-[id number]-Xdwx in place no cyanosis clubbing or edema Psych: Appropriate affect Neuro: Moving all extremities ICD10 Worksheet Patient Problems: Problems Problem Status Onset Dysphagia Acute Esophageal mass Acute Intractable pain Acute
--- NOTE | 2018-04-28 15:51 | ASMTCMCOM ---
CM Note CM Note Notes: Patient seen by palliative care for offers of support. She is agreeable to palliative support. Contacted [facility] for enteral feeding supplies and they are processing her insurance. Lanny Mujica to see this pm for palliative. [facility] requested. Application for [employer]Box palced. CM to follow. Plan: Home with [facility], [facility] for infusion services and [facility] Date Signed: 04/28/2018 03:50 PM Electronically Signed By:Ketty Irizarry RN
[2018-04-28] MEDS: morphINE 10 MG/0.5 ML UDSYR PO PRN (18:55)
[2018-04-28] MEDS: MELATONIN 3 MG TAB PO SCH (20:37)
[2018-04-29] MEDS: PROMETHAZINE HCL 25 MG/ML INJ IVP PRN ×3 (00:23→15:48)
[2018-04-29] MEDS: ONDANSETRON 4 MG/2 ML VIAL IVP PRN ×3 (03:21→20:04)
[2018-04-29] MEDS: NS W/ 20 KCl/L 1,000 ML IV SCH (03:21)
[2018-04-29 05:09] LABS: PLATELET COUNT 240 10^3/uL (150-400)
[2018-04-29] MEDS: HYDROmorphONE/DILAUDID 1 MG/ML INJ IVP PRN ×3 (07:51→20:05)
[2018-04-29] MEDS: PANTOPRAZOLE SODIUM 40 MG VIAL IVP SCH (07:52)
[2018-04-29] MEDS ORDERED: MAGNESIUM SULF 1 GM/DEXTROSE 100 ML IV ONE (08:30)
--- NOTE | 2018-04-29 10:39 | ASMTCMCOM ---
CM Note CM Note Notes: Chart reviewed. Patient signed up with [facility]. Pain control is her major goal at this time. Epic with be supplying her tube feed and pump. May discharge later today. Will need follow up Pet and start chemo as outpatient. Has good family support from daughter, Mignon, and son. Pedro. CM to follow for needs, Plan: Likely to dc to home with [facility] and [facility] when medically cleared for discharge. Date Signed: 04/29/2018 10:39 AM Electronically Signed By:Ketty Irizarry RN
--- NOTE | 2018-04-29 12:50 | SOAPPROG ---
SOAP Progress Note Assessment/Plan: Assessment: This is a very pleasant 69-year-old female with a newly diagnosed esophageal cancer who was admitted for failure to thrive in pain control. 1. Gastroesophageal cancer: She underwent diagnostic laparoscopy and was found to have ascites. The fluid was sent for cytology which is currently pending. Surgery demonstrated a diffusely thickened stomach. A feeding tube was placed. I have recommended assessing cytology and possibly PET/CT to rule out distant metastatic disease. I have requested HER-2 testing and MSI testing earlier this week and is pending. She will follow up with Dr. Angie Purvis in clinic at time of discharge. 2. Weight loss: Enteric feeding was started yesterday and she developed significant abdominal pain. The rate was decreased and there is discussion about initiating her on TPN today. If possible, I would attempt re-evaluating her tube feeds. She notes multiple food allergens, and I am not sure if this has anything to do with her current issues. 3. Cancer related pain: She is on fentanyl patch alongside short-acting opiates. 04/29/18 12:48 Subjective: Kylah was started on tube feeds yesterday which continued through today. She experienced significant pain similar to when she initially presented to the emergency room. The pain radiated from her abdomen up into the throat. She had symptoms of acid reflux as well. The rate of enteric feeding was decreased down to 10 cc an hour. She continues to have significant pain currently. Objective: Vital Signs Temp Pulse Resp BP Pulse Ox 36.5 C 86 16 134/93 H 95 04/29/18 08:00 04/29/18 08:00 04/29/18 08:00 04/29/18 08:00 04/29/18 08:00 Laboratory Results 04/29/18 04:35 04/29/18 04:35 04/28/18 04/29/18 04/30/18 05:59 05:59 05:59 Intake Total 1400 1000 Output Total 1970 950 Balance -570 50 PT 13.5 SEC (12.0-15.0) 04/25/18 11:55 INR 1.01 (0.83-1.16) 04/25/18 11:55 General: Thin female in no acute distress sitting comfortably at bedside with her son present HEENT: Oropharynx is clear extraocular movements are intact atraumatic normocephalic Cardiovascular: Regular rate and rhythm Pulmonary: Clear to auscultation bilaterally Abdomen: Gastric tube is in place. Slight tenderness throughout the abdomen. Bowel sounds are present. Extremities: 1+ bilateral lower extremity edema Psych: Appropriate affect Neuro: Moving all extremities ICD10 Worksheet Patient Problems: Problems Problem Status Onset Dysphagia Acute Esophageal mass Acute Intractable pain Acute
[2018-04-29] MEDS ORDERED: PROTOCOL K PHOSPHATE 1 DOSE IV PRN (15:46)
[2018-04-29] MEDS ORDERED: D10W 1,000 ML IV PRN (15:47)
[2018-04-29] MEDS ORDERED: MAGNESIUM SULF 2 GM/WATER 50 ML IV ONE (15:50)
[2018-04-29] MEDS ORDERED: K PHOS 10 MMOL in D5W 250 ML IV ONE (15:51)
--- NOTE | 2018-04-29 15:55 | HOSPPROG ---
Hospitalist Progress Note Assessment/Plan: DIAGNOSES: * new diagnosis of esophageal/gastric carcinoma * pain of malignancy * dehydration due to inability to take in fluids from tumor * severe protein calorie malnutrition due to inability to eat from tumor * hypokalemia, resolved * Hypomagnesemia * Hypophosphatemia * Nausea: schedule antiemetics *s/p Left subclavian port *s/p placement of Jejunostomy feeding tube Seen by me today on hospitals rounds and multidisciplinary rounds Reviewed by me today with Dr. Jacky Pak PLANS: -She did not tolerate her tube feeds well. Rate was decreased to 10ml/hr w/o improvement. We will hold these for now but cont with a small amount of water flushes. I discussed with Dietary and we will plan on restarting tomorrow. -TPN will also be started but given the timing, this cannot be started until tomorrow evening -reschedule antiemetics -stop IVF temporarily due to her pedal edema, but she will still need some today. Will restart this afternoon -replace both Mg and Ph. She is at high risk for refeeding syndrom -cont pain mgmt -f/u results of staging lap -chemotherapy start likely as an op per Oncology. Will need op PET/CT -Lovenox for DVT proph Subjective: Has nausea. abd cramping. no cp or sob. Objective: Vital Signs Temp Pulse Resp BP Pulse Ox 36.8 C 96 16 140/87 H 96 04/29/18 15:50 04/29/18 15:50 04/29/18 15:50 04/29/18 15:50 04/29/18 15:50 Laboratory Results 04/29/18 04:35 04/29/18 04:35 04/28/18 04/29/18 04/30/18 05:59 05:59 05:59 Intake Total 1400 1000 Output Total 1970 950 Balance -570 50 PT 13.5 SEC (12.0-15.0) 04/25/18 11:55 INR 1.01 (0.83-1.16) 04/25/18 11:55 - Physical Exam Constitutional: no apparent distress, chronically ill appearing Eyes: PERRL, anicteric sclera, EOMI Ears, Nose, Mouth, Throat: moist mucous membranes, hearing normal, ears appear normal Cardiovascular: regular rate and rhythym, edema (trace LE edema) Respiratory: no respiratory distress Gastrointestinal: normoactive bowel sounds, soft, non-tender abdomen Skin: warm Neurologic: AAOx3 Psychiatric: interacting appropriately, not anxious, not encephalopathic Lymph, Heme, Immunologic: No petechiae ICD10 Worksheet Patient Problems: Problems Problem Status Onset Dysphagia Acute Esophageal mass Acute Intractable pain Acute
[2018-04-29] MEDS ORDERED: NS W/ 20 KCl/L 1,000 ML IV SCH (16:00)
[2018-04-29] MEDS: ENOXAPARIN 40 MG/0.4 ML SYR SC SCH (16:23)
[2018-04-29] MEDS: morphINE 10 MG/0.5 ML UDSYR PO PRN (16:53)
[2018-04-29 17:26] LABS: PLATELET COUNT 247 10^3/uL (150-400)
[2018-04-29 17:59] LABS: INR 1.14 (0.83-1.16); PROTIME(PATIENT) 14.8 SEC (12.0-15.0)
[2018-04-29] MEDS: MELATONIN 3 MG TAB PO SCH (21:18)
[2018-04-29] MEDS ORDERED: LORazepam 2 MG/ML INJ IVP PRN (21:37)
[2018-04-29] MEDS: ONDANSETRON 4 MG/2 ML VIAL IVP SCH (22:32)
[2018-04-30 03:18] LABS: PLATELET COUNT 237 10^3/uL (150-400)
[2018-04-30] MEDS: PROMETHAZINE HCL 25 MG/ML INJ IVP PRN ×5 (03:21→22:32)
[2018-04-30 03:26] LABS: INR 1.13 (0.83-1.16); PROTIME(PATIENT) 14.7 SEC (12.0-15.0)
[2018-04-30] MEDS ORDERED: POTASSIUM Cl (KCl) 100 ML IV ONE (04:30)
[2018-04-30] MEDS: ONDANSETRON 4 MG/2 ML VIAL IVP SCH ×3 (05:00→21:41)
[2018-04-30] MEDS ORDERED: POTASSIUM CL 10 MEQ TAB PO ONE (08:15)
[2018-04-30] MEDS: PANTOPRAZOLE SODIUM 40 MG VIAL IVP SCH (08:31)
[2018-04-30] MEDS: ENOXAPARIN 40 MG/0.4 ML SYR SC SCH ×2 (08:31→08:36)
--- NOTE | 2018-04-30 09:14 | SOAPPROG ---
SOAP Progress Note Assessment/Plan: Assessment/Plan: 67 yo woman w newly diagnosed gastroesophageal cancer admitted for FTT and pain control 1. gastroesophageal ca - adeno confirmed, HER2/MSI pending endoscopy report not clear to me but seems to be at GE junction? w diffuse involvement of stomach endoscopy was not able to be passed through obx portion in esophagus Reviewing Dr Corbett's OP note, does seem as though he biopsied a suspicious peritoneal implant which was positive for metastatic dz cytology still pending but I do believe we have already confirmed stage IV adenoca Pt not sure she would want to receive any palliative therapy as she feels too weak already we are trying to improve her nutrition at this time I would consider palliative XRT to area of obx to see if improved her pain and nausea 2. Poor nutrition and weight loss - due to #1 not tolerating TF (J tube) Starting TPN today Cont current anti-emetics; added Ativan 3. Cancer related pain - cont current regimen 04/30/18 09:07 04/30/18 09:10 Subjective: Pt denies any new issues Cont to feel weak Objective: Vital Signs Temp Pulse Resp BP Pulse Ox 36.8 C 85 16 162/104 H 93 04/30/18 08:00 04/30/18 08:00 04/30/18 08:00 04/30/18 08:00 04/30/18 08:00 Laboratory Results 04/30/18 03:11 04/30/18 03:11 04/29/18 04/30/18 05/01/18 05:59 05:59 05:59 Intake Total 1000 1817 Output Total 950 1100 Balance 50 717 PT 14.7 SEC (12.0-15.0) 04/30/18 03:11 INR 1.13 (0.83-1.16) 04/30/18 03:11 Gen - thin appearing, chronically ill HEENT - anicteric CV - RRR Resp - clear Abd - TTP epigastrium Ext - no edema ICD10 Worksheet Patient Problems: Problems Problem Status Onset Dysphagia Acute Esophageal mass Acute Intractable pain Acute
[2018-04-30] MEDS ORDERED: NS 1,000 ML IV SCH (11:00)
[2018-04-30] MEDS ORDERED: K PHOS 10 MMOL in D5W 250 ML IV ONE (12:00)
[2018-04-30] MEDS: HYDROmorphONE/DILAUDID 1 MG/ML INJ IVP PRN ×4 (12:27→22:40)
--- NOTE | 2018-04-30 12:32 | HOSPPROG ---
Hospitalist Progress Note Assessment/Plan: DIAGNOSES: * new diagnosis of esophageal/gastric carcinoma * pain of malignancy * dehydration due to inability to take in fluids from tumor * severe protein calorie malnutrition due to inability to eat from tumor * hypokalemia, resolved * Hypomagnesemia * Hypophosphatemia * Nausea: schedule antiemetics *s/p Left subclavian port *s/p placement of Jejunostomy feeding tube *pedal edema, trace. monitor for now Seen by me today on hospitals rounds and multidisciplinary rounds PLANS: -TPN tonight -TF's: did not tolerate earlier. Taking a break for now. Hoping to restart at 10ml/hr today or tomorrow. Will get water flushes scheduled -schedule antiemetics -replace both Mg and Ph. She is at high risk for refeeding syndrome -cont pain mgmt -f/u results of staging lap -chemotherapy start likely as an op per Oncology. Will need op PET/CT -May need to reconsider goals of care -Lovenox for DVT proph Subjective: less nausea. pain is well controlled. Objective: Vital Signs Temp Pulse Resp BP Pulse Ox 36.8 C 85 16 162/104 H 93 04/30/18 08:00 04/30/18 08:00 04/30/18 08:00 04/30/18 08:00 04/30/18 08:00 Laboratory Results 04/30/18 03:11 04/30/18 03:11 04/29/18 04/30/18 05/01/18 05:59 05:59 05:59 Intake Total 1000 1817 Output Total 950 1100 Balance 50 717 PT 14.7 SEC (12.0-15.0) 04/30/18 03:11 INR 1.13 (0.83-1.16) 04/30/18 03:11 - Physical Exam Constitutional: chronically ill appearing Eyes: PERRL Ears, Nose, Mouth, Throat: moist mucous membranes, hearing normal Cardiovascular: regular rate and rhythym, edema (trace) Respiratory: no respiratory distress Gastrointestinal: normoactive bowel sounds, soft, non-tender abdomen Skin: warm Neurologic: AAOx3 Psychiatric: interacting appropriately, not anxious, not encephalopathic Lymph, Heme, Immunologic: No petechiae ICD10 Worksheet Patient Problems: Problems Problem Status Onset Dysphagia Acute Esophageal mass Acute Intractable pain Acute
[2018-04-30] MEDS: ONDANSETRON 4 MG/2 ML VIAL IVP PRN (18:53)
[2018-04-30] MEDS: TPN 1 EA BAG IV SCH (21:18)
[2018-04-30] MEDS: MELATONIN 3 MG TAB PO SCH (21:44)
[2018-05-01] MEDS: HYDROmorphONE/DILAUDID 1 MG/ML INJ IVP PRN ×6 (02:19→22:04)
[2018-05-01] MEDS: ONDANSETRON 4 MG/2 ML VIAL IVP PRN (02:19)
[2018-05-01] MEDS: ONDANSETRON 4 MG/2 ML VIAL IVP SCH ×3 (05:02→22:02)
[2018-05-01 05:27] LABS: PLATELET COUNT 274 10^3/uL (150-400)
[2018-05-01 05:35] LABS: INR 1.07 (0.83-1.16); PROTIME(PATIENT) 14.1 SEC (12.0-15.0)
--- NOTE | 2018-05-01 08:43 | SOAPPROG ---
SOAP Progress Note Assessment/Plan: Assessment/Plan: 67 yo woman w newly diagnosed gastroesophageal cancer admitted for FTT and pain control 1. gastroesophageal ca - adeno confirmed, HER2/MSI pending endoscopy report not clear to me but seems to be at GE junction? w diffuse involvement of stomach endoscopy was not able to be passed through obstructive portion in esophagus Reviewing Dr Corbett's OP note, he did biopsy a suspicious peritoneal implant which was positive for metastatic dz cytology still pending but I do believe we have already confirmed stage IV adenoca; this was discussed w patient today Pt not sure she would want to receive any palliative therapy as she feels too weak already we are trying to improve her nutrition at this time options going forward palliative care vs chemo vs XRT alone to area of obx Given PS, would opt for 2 drug regimen If HER2+, could have dramatic response but pt understands this would still be palliative would like family to be here tomorrow for more of a discussion 2. Poor nutrition and weight loss - due to #1 not tolerating TF (J tube) On TPN now still having a lot of nausea and after discussion, Reglan may be an option to improve gut motility Will add today 3. Cancer related pain - cont current regimen 05/01/18 08:42 Subjective: No acute events TPN going but does not feel tolerating well +nausea Objective: Vital Signs Temp Pulse Resp BP Pulse Ox 36.9 C 88 16 124/86 H 91 L 05/01/18 04:00 05/01/18 04:00 05/01/18 04:00 05/01/18 04:00 05/01/18 04:00 Laboratory Results 05/01/18 05:00 05/01/18 05:00 04/30/18 05/01/18 05/02/18 05:59 05:59 05:59 Intake Total 1817 1300 Output Total 1100 Balance 717 1300 PT 14.1 SEC (12.0-15.0) 05/01/18 05:00 INR 1.07 (0.83-1.16) 05/01/18 05:00 Gen - chronically ill appearing HEENT - anicteric CV - Tachy Abd - soft, BS+, TTP Ext - no sig edema ICD10 Worksheet Patient Problems: Problems Problem Status Onset Dysphagia Acute Esophageal mass Acute Intractable pain Acute
[2018-05-01] MEDS: METOCLOPRAMIDE 10 MG/2 ML VIAL IVP SCH ×2 (09:04→20:40)
[2018-05-01] MEDS: PROMETHAZINE HCL 25 MG/ML INJ IVP PRN ×2 (09:15→17:32)
[2018-05-01] MEDS: PANTOPRAZOLE SODIUM 40 MG VIAL IVP SCH (09:19)
[2018-05-01] MEDS: ENOXAPARIN 40 MG/0.4 ML SYR SC SCH (09:19)
[2018-05-01] MEDS ORDERED: MAGNESIUM SULF 1 GM/DEXTROSE 100 ML IV ONE (09:30)
--- NOTE | 2018-05-01 10:13 | HOSPPROG ---
Hospitalist Progress Note Assessment/Plan: #Newly diagnosed esophageal/gastric carcinoma -TPN, monitor lytes #Severe protein calorie malnutrition: -s/p J-tube pending. TPN, monitor for refeeding syndrome #Hypomagnesium/hypokalemi: repleting #Pain of malignancy -increase Fentanyl to 50mcg. Add Reglan, PPI #Normocytic anemia: no transfusion needed #Peripheral edema: Lasix PO #Goals: revisited patient this afternoon and she expressed that she wants to enroll in Hospice. Will have them evaluate tomorrow #DVT ppx: declines Lovenox. ambulating #Disp: inpatient admission for TPN, serial labs Subjective: severe reflux Objective: Vital Signs Temp Pulse Resp BP Pulse Ox 36.9 C 87 16 124/86 H 96 05/01/18 04:00 05/01/18 08:00 05/01/18 04:00 05/01/18 04:00 05/01/18 08:00 Laboratory Results 05/01/18 05:00 05/01/18 05:00 04/30/18 05/01/18 05/02/18 05:59 05:59 05:59 Intake Total 1817 1300 Output Total 1100 Balance 717 1300 PT 14.1 SEC (12.0-15.0) 05/01/18 05:00 INR 1.07 (0.83-1.16) 05/01/18 05:00 - Time Spent With Patient Time Spent with Patient: greater than 35 minutes Time Spent with Patient: Greater than 35 minutes spent on this patients care, greater than 50% of time spent counseling, educating, and coordinating care regarding the above mentioned plan. - Physical Exam Constitutional: no apparent distress Eyes: PERRL Ears, Nose, Mouth, Throat: moist mucous membranes Cardiovascular: regular rate and rhythym, edema (+1-2 bilateral shins) Respiratory: no respiratory distress Gastrointestinal: tenderness (epigastric) Musculoskeletal: full muscle strength Neurologic: AAOx3, CN II-XII Intact Psychiatric: interacting appropriately ICD10 Worksheet Patient Problems: Problems Problem Status Onset Dysphagia Acute Esophageal mass Acute Intractable pain Acute
[2018-05-01] MEDS ORDERED: K PHOS 10 MMOL in D5W 250 ML IV ONE (10:30)
[2018-05-01] MEDS ORDERED: fentaNYL 50 MCG PATCH TD SCH (12:30)
[2018-05-01] MEDS: FUROSEMIDE 20 MG TAB PO SCH (15:02)
[2018-05-01] MEDS: MELATONIN 3 MG TAB PO SCH (20:40)
[2018-05-01] MEDS: TPN 1 EA BAG IV SCH (22:09)
[2018-05-02] MEDS: PROMETHAZINE HCL 25 MG/ML INJ IVP PRN ×2 (03:23→12:26)
[2018-05-02] MEDS: HYDROmorphONE/DILAUDID 1 MG/ML INJ IVP PRN ×6 (03:28→22:39)
[2018-05-02] MEDS: ONDANSETRON 4 MG/2 ML VIAL IVP SCH ×3 (05:16→21:02)
[2018-05-02 05:37] LABS: PLATELET COUNT 257 10^3/uL (150-400)
[2018-05-02 05:47] LABS: INR 1.12 (0.83-1.16); PROTIME(PATIENT) 14.6 SEC (12.0-15.0)
[2018-05-02] MEDS ORDERED: POTASSIUM CL 20 MEQ TAB PO ONE (06:39)
[2018-05-02] MEDS: ENOXAPARIN 40 MG/0.4 ML SYR SC SCH (08:24)
[2018-05-02] MEDS: POTASSIUM Cl (KCl) 100 ML IV SCH ×4 (08:26→14:20)
[2018-05-02] MEDS ORDERED: MAGNESIUM SULF 1 GM/DEXTROSE 100 ML IV ONE (08:30)
[2018-05-02] MEDS: FUROSEMIDE 20 MG TAB PO SCH (08:34)
[2018-05-02] MEDS: METOCLOPRAMIDE 10 MG/2 ML VIAL IVP SCH ×2 (08:34→20:30)
[2018-05-02] MEDS: PANTOPRAZOLE SODIUM 40 MG VIAL IVP SCH (08:35)
--- NOTE | 2018-05-02 10:18 | SOAPPROG ---
SOAP Progress Note Assessment/Plan: Assessment: 1. 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 Would give FOLFOX/herceptin in this case. She has struggled with chronic pain for many years and does not want active therapy for her cancer , just wants to be as comfortable as possible. Plan: - no chemo per pt's wishes - hospice consult - try to restart j tube feeds, as it would be optimal to send pt home with option for enteral nutrition. TPN and IV hydration may be more difficult to arrange in a hospice setting. 35 min spent w/ pt and in coordination of care d/w dr escobedo. 05/02/18 10:16 Subjective: pt says she feels much better today. Objective: Exam: thin, NAD Lungs CTAB CV RRR no MGR Abd: +BS. mild diffuse tenderness, mild distension Ext: no edema Vital Signs Temp Pulse Resp BP Pulse Ox 36.9 C 91 16 130/81 H 91 L 05/02/18 07:48 05/02/18 07:48 05/02/18 07:48 05/02/18 07:48 05/02/18 07:48 Laboratory Results 05/02/18 05:20 05/02/18 05:20 05/01/18 05/02/18 05/03/18 05:59 05:59 05:59 Intake Total 1300 630 Balance 1300 630 PT 14.6 SEC (12.0-15.0) 05/02/18 05:20 INR 1.12 (0.83-1.16) 05/02/18 05:20 ICD10 Worksheet Patient Problems: Problems Problem Status Onset Dysphagia Acute Esophageal mass Acute Intractable pain Acute
--- NOTE | 2018-05-02 13:03 | ASMTCMCOM ---
CM Note CM Note Notes: Patient plan of care reviewed in rounds yesterday. She feels she is symptomatic from her TPN. She confides in me she would really prefer to go with hospice care and this has been a consistent message when speaking to her. Hospice order placed to [facility] in [employer]. I will also consult our chaplains to assist her with POA. CM to follow. Plan: Dc to home with hospice care. Date Signed: 05/02/2018 08:44 AM Electronically Signed By:Ketty Irizarry RN
--- NOTE | 2018-05-02 14:30 | HOSPPROG ---
Hospitalist Progress Note Assessment/Plan: #Newly diagnosed esophageal/gastric carcinoma -planning for home with hospice in am #Severe protein calorie malnutrition: -s/p J-tube, will trial trickle tube feeds again tonight with plan for home with tube feeds as tolerated -cont TPN, monitor for refeeding syndrome #Hypomagnesium/hypokalemia: repleting #Pain of malignancy -cont Fentanyl 50mcg. -cont Reglan, PPI -change roxanol to morphine IR per tube prn per pt request #Normocytic anemia: no transfusion needed #Peripheral edema: Lasix PO #Goals: home with hospice in am #DVT ppx: declines Lovenox. ambulating #Disp: cont inpt Subjective: Pt says she hasn't felt this good in a long time. No nausea/ vomiting or pain. Unable to tolerate much orally and had nausea with attempt at tube feeds, but wants to try again. She has decided on hospice care Objective: Vital Signs Temp Pulse Resp BP Pulse Ox 36.9 C 91 16 121/87 H 94 05/02/18 11:34 05/02/18 11:34 05/02/18 11:34 05/02/18 11:34 05/02/18 11:34 Laboratory Results 05/02/18 05:20 05/02/18 05:20 05/01/18 05/02/18 05/03/18 05:59 05:59 05:59 Intake Total 1300 630 Balance 1300 630 PT 14.6 SEC (12.0-15.0) 05/02/18 05:20 INR 1.12 (0.83-1.16) 05/02/18 05:20 - Physical Exam Constitutional: no apparent distress Eyes: PERRL Ears, Nose, Mouth, Throat: moist mucous membranes Cardiovascular: regular rate and rhythym Respiratory: no respiratory distress, clear to auscultation Gastrointestinal: normoactive bowel sounds, soft, non-tender abdomen Skin: warm Musculoskeletal: full muscle strength Neurologic: AAOx3 Psychiatric: interacting appropriately ICD10 Worksheet Patient Problems: Problems Problem Status Onset Dysphagia Acute Esophageal mass Acute Intractable pain Acute
[2018-05-02] MEDS: MELATONIN 3 MG TAB PO SCH (20:30)
[2018-05-02] MEDS: TPN 1 EA BAG IV SCH (20:37)
[2018-05-03] MEDS: ONDANSETRON 4 MG/2 ML VIAL IVP SCH (05:00)
[2018-05-03] MEDS: HYDROmorphONE/DILAUDID 1 MG/ML INJ IVP PRN ×3 (06:04→12:34)
[2018-05-03 07:33] VITALS: BP 126/72
[2018-05-03] MEDS: PROMETHAZINE HCL 25 MG/ML INJ IVP PRN (07:46)
[2018-05-03] MEDS: FUROSEMIDE 20 MG TAB PO SCH (09:29)
[2018-05-03] MEDS: PANTOPRAZOLE SODIUM 40 MG VIAL IVP SCH (09:29)
[2018-05-03] MEDS: METOCLOPRAMIDE 10 MG/2 ML VIAL IVP SCH (09:29)
[2018-05-03] MEDS: ENOXAPARIN 40 MG/0.4 ML SYR SC SCH (10:23)
--- NOTE | 2018-05-03 11:30 | SOAPPROG ---
SKIP Progress Note Assessment/Plan: Assessment: 1. 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 Malnutrition due to esophageal obstruction she is going home with hospice. we discussed the pathology (her2+) and the potential treatment regimens (eg FOLFOX + herceptin.) I explained that she can call me to make an appointment if she needs anything or if she wants to reconsider treatment. Subjective: feeling well. tube feeds advanced to 20 ml/hr without any discomfort. Objective: Vital Signs Temp Pulse Resp BP Pulse Ox 36.9 C 75 14 126/72 H 90 L 05/03/18 07:32 05/03/18 07:32 05/03/18 07:32 05/03/18 07:32 05/03/18 07:32 Laboratory Results 05/02/18 05:20 05/03/18 04:20 05/02/18 05/03/18 05/04/18 05:59 05:59 05:59 Intake Total 630 1812 Balance 630 1812 PT 14.6 SEC (12.0-15.0) 05/02/18 05:20 INR 1.12 (0.83-1.16) 05/02/18 05:20 ICD10 Worksheet Patient Problems: Problems Problem Status Onset Dysphagia Acute Esophageal mass Acute Intractable pain Acute
--- NOTE | 2018-05-03 12:09 | PDIAF ---
- Diagnosis Diagnosis: gastroesophageal cancer - Medication Management Discharge Medications: Medications to Continue on Transfer traMADol [Ultram 50 mg (*)] 50 mg PO Q4HRS PRN 04/25/18 [Last Taken 04/22/18] Acetaminophen [Tylenol 325mg (*)] 650 mg PO Q6 PRN tab 05/03/18 [Last Taken Unknown] Famotidine [Pepcid 20 MG (*)] 20 mg PO BID #60 tab 05/03/18 [Last Taken Unknown] Furosemide [Lasix 20 MG (*)] 20 mg PO DAILY PRN #30 tab 05/03/18 [Last Taken Unknown] Melatonin [Melatonin 3 MG (*)] 3 mg PO HS tab 05/03/18 [Last Taken Unknown] Ondansetron Odt [Zofran Odt 4 mg (*)] 4 mg PO Q8HRS PRN #30 tab 05/03/18 [Last Taken Unknown] fentaNYL [Duragesic 50 MCG Patch (*)] 50 mcg TD Q72H #20 patch 05/03/18 [Last Taken Unknown] morphINE IR [morphINE IR 15 mg (*)] 15 mg TUBE Q4H PRN #30 tab 05/03/18 [Last Taken Unknown] Discharge Medications: Refer to the Discharge Home Medication list for PRN reason. - Orders Services needed: Home Residential Care Face to Face: I certify that this patient was under my care and that I had the required [id number] encounter meeting the encounter requirements on the discharge day. My findings support the fact that the patient is homebound as defined in Home Care Face to Face Continued: CMS Chapter 7 Medicare Benefits Manual 30.1.1 , The condition of the patient is such that there exists a normal inability to leave home and consequently, leaving home would require a considerable and taxing effort. Diet Recommendation: other (tube feeds as tolerated) Additional Instructions: Home hospice Vivonex tube feeds at 20 mLs/hr as tolerated at night. - Follow Up Care Current Providers and Referrals: NAWAF GARCIA [Primary Care Provider] - As per Instructions
--- NOTE | 2018-05-04 08:51 | GDS ---
DISCHARGE DIAGNOSES: 1. Gastroesophageal adenocarcinoma. 2. Severe protein calorie malnutrition. 3. Electrolyte disturbances including hypomagnesemia and hypokalemia. 4. Pain of malignancy. 5. Normocytic anemia. 6. Peripheral edema. CONSULTANTS: 1. Dr. Jacky Pak, Oncology. 2. Dr. Gallo Fay, Gastroenterology. 3. Dr. Fred Corbett, General Surgery. HISTORY: For details, please see the history and physical dated April 25, 2018. In brief, the satya chan is a 67-year-old female who has previously been fairly healthy, presents to the emergency depart ment with epigastric burning pain and nausea. She had just recently been diagnosed with a large esop hagogastric mass by endoscopy. Biopsies showed poorly differentiated adenocarcinoma. She was admitt ed to the hospital for further management. HOSPITAL COURSE: The patient was admitted to the Cancer Care Unit. She received IV fluids and pain management with fentanyl patch, the dose of which was uptitrated to 50 mcg daily. She also required p.r.n. morphine for breakthrough pain. A gastrojejunostomy tube were placed during this hospitalizat ion. She received TPN. Initially did not tolerate tube feeds, so prior to discharge she actually di d better tolerating tube feeds. Unfortunately, her disease was determined to be unresectable. Consi deration was given to palliative chemotherapy; however, the patient felt she was too weak already and opted against chemotherapy or radiation. Instead, she wished to discharge home on hospice. Hospice evaluation was completed. She actually had improvement in her symptoms and is pleased to go home to spend quality time with her friends and family. DISPOSITION: Patient is discharged home with home hospice in stable condition. DISCHARGE MEDICATIONS: Please see [employer] completed outpatient medication list. New medications on discharge include: 1. Tylenol 650 p.o. q.6 hours p.r.n. 2. Pepcid 20 mg per tube b.i.d. 3. Lasix 20 mg per tube daily p.r.n. for edema or shortness of breath. 4. Melatonin mg per tube h.s. 5. Morphine IR 50 mg per tube q.4 hours p.r.n. 6. Fentanyl patch 50 mcg transdermal q.72 hours, #10, no refills. She will continue p.r.n. Zofran. FOLLOWUP: Dr. Rosalba Boone, primary care, as needed, and she will be followed by home hospice. /[id number]/MODL
== END 2018-05-03 14:00 | disposition hospice, home (50) | DRG 329 ==
LOC: F3E 12:05 → F1N 12:34
PROVIDERS: ADMIT Internal Medicine; ATTEND Internal Medicine
DX: C16.0 Malignant neoplasm of cardia (principal); G89.3 Neoplasm related pain (acute) (chronic); R18.0 Malignant ascites; E87.1 Hypo-osmolality and hyponatremia; E43 Unspecified severe protein-calorie malnutrition; R62.7 Adult failure to thrive; E87.6 Hypokalemia; E83.42 Hypomagnesemia; E83.39 Other disorders of phosphorus metabolism; Z87.891 Personal history of nicotine dependence
CPT/HCPCS: 82435-PO; 82565-PO; 82947-PO; 84132-PO; 84295-PO; 84520-PO; 85014-PO; 96374; C1788; J0690; J1170; J1642; J1650; J1885; J2060; J2175; J2250; J2405; J2550; J2704; J2765; J3010; J3475; J3480; Q9967